=== PATIENT | female | born 1960 | race Caucasian/White ===

== ENCOUNTER → 2016-10-17 | Outpatient (CLI) | payer BC ==
[~2016-10-17] MED LIST: AMPI500C9 PO; INSU100I23 SQ; SITA100T3 PO
== END | disposition home or self-care (01) ==
LOC: C.LAB1850 13:50
PROVIDERS: ATTEND Internal Medicine Endocrinology, Diabetes & Metabolism
DX: E83.52 Hypercalcemia (principal)

== ENCOUNTER → 2017-05-20 | Outpatient (CLI) | payer BC ==
[2017-05-20 17:21] LABS: PROTHROMBIN TIME (PATIENT) 10.6 SECONDS (9.0-12.0)
[2017-05-20 17:32] LABS: POTASSIUM 4.2 mmol/L (3.5-5.1)
== END | disposition home or self-care (01) ==
LOC: C.CPL 16:27
DX: Z01.818 Encounter for other preprocedural examination (principal)

== ENCOUNTER 2017-05-29 05:07 | Day surgery (SDC) | payer BC ==
[2017-05-28 12:04] VITALS: BMI 32.0
[~2017-05-29] VITALS: Ht 167.6 cm; Wt 90.9 kg
[~2017-05-29 05:07] MED LIST changes: -AMPI500C9 PO
[2017-05-29] MEDS ORDERED: AMPI500C9 PO (05:42)
[2017-05-29] MEDS ORDERED: CEFAZOLIN 2000 MG/60 ML D5W IV SCH (06:00)
[2017-05-29 06:10] VITALS: BP 164/76; PULSE 69; TEMP 36.7; O2SAT 96; Ht 167.6 cm; Wt 90.9 kg
--- NOTE | 2017-05-29 06:27 | History & Physical Bridge Note ---
H&P Re-Evaluation Bridge Note: I have examined the patient, reviewed the History & Physical and in the interval since the performance of the History & Physical I have noted the following changes of clinical significance: No changes noted
[2017-05-29 06:46] LABS: BUN/CREATININE RATIO 16.9 (10-20); CALCIUM 10.7 mg/dl (8.5-10.1); CREATININE 1.1 mg/dl (0.60-1.20); POTASSIUM 3.8 mmol/L (3.5-5.1)
--- NOTE | 2017-05-29 06:46 | Discharge Instructions ---
Discharge Instructions Date of Service May 29, 2017. Admission Reason for Admission: Hyperparathyroidism Discharge Discharge Diagnosis / Problem: SAME Discharge Goals Goal(s): Therapeutic intervention Activity Recommendations Activity Limitations: as noted below LIGHT ACTIVITY FOR 2 WEEKS; NO DRIVING WHILE ON NORCO . Current Hospital Diet Patient's current hospital diet: Discharge Diet Recommended Diet: Regular Diet Pending Studies Studies pending at discharge: no Medical Emergencies . Who to Call and When: Medical Emergencies: If at any time you feel your situation is an emergency, please call 911 immediately. . Non-Emergent Contact Non-Emergency issues call your: Surgeon . . "Provider Documentation" section prepared by Leobardo Hughes. . VTE Core Measure Inpt VTE Proph given/why not?: SCD's
[2017-05-29] MEDS ORDERED: ROCURONIUM BROMIDE 10 MG/ML 5 ML VIAL IV ONE (06:59)
[2017-05-29] MEDS ORDERED: PROPOFOL IV EMULSION 10 MG/ML 20 ML VIAL IV ONE (06:59)
[2017-05-29] MEDS ORDERED: SUCCINYLCHOLINE CHLORIDE 20 MG/ML 10 ML VIAL IV ONE (06:59)
[2017-05-29] MEDS ORDERED: LIDOCAINE HCL 2% 2 ML VIAL (20MG/ML) ONE (06:59)
[2017-05-29] MEDS ORDERED: MIDAZOLAM HCL 1 MG/ML 2ML VIAL ONE (07:00)
[2017-05-29] MEDS ORDERED: FENTANYL CITRATE INJ 50 MCG/1 ML 2 ML VIAL ONE ×2 (07:00→08:06)
[2017-05-29] MEDS ORDERED: LIDOCAINE/EPINEPHRINE 1% 20 ML VIAL ONE (07:00)
[2017-05-29] MEDS ORDERED: THROMBIN 5000 UNITS KIT ONE (07:01)
[2017-05-29] MEDS ORDERED: BACITRACIN OINT 15 GM TUBE ONE (07:01)
[2017-05-29] MEDS ORDERED: ONDANSETRON INJ 2 MG/ML 2 ML VIAL ONE (07:44)
[2017-05-29] MEDS ORDERED: DEXAMETHASONE SOD INJ 4 MG/ML VIAL ONE (07:44)
[2017-05-29] MEDS ORDERED: FENTANYL CITRATE INJ 50 MCG/1 ML 2 ML VIAL IV PRN (08:15)
[2017-05-29] MEDS ORDERED: ONDANSETRON INJ 2 MG/ML 2 ML VIAL IV PRN ×2 (08:15→09:15)
[2017-05-29] MEDS ORDERED: ATROPINE SULFATE 0.1 MG/ML 5ML SYR IV PRN (08:15)
[2017-05-29] MEDS ORDERED: EpHEDrine SULFATE INJ 50 MG/ML AMP IV PRN (08:15)
--- NOTE | 2017-05-29 09:09 | [facility] Operative Report ---
Operative Report Operative Date May 29, 2017. Pre-Operative Diagnosis Hyperparathyroidism Post-Operative Diagnosis same Procedure(s) Performed Parathyroidectomy Surgeon Dr. Hughes Bisque Ware Dipper Surgeon(s) Shahrzad Pizarro PA-C Estimated Blood Loss 5 ml Findings 1. RIGHT SUPERIOR PARATHYROID ADENOMA 2. PREOP PTH 65.1 DECREASED TO 12.7 TEN MINUTES AFTER REMOVAL OF ADENOMA Specimens frozen 1. Right Superior Parathyroid Canidate-Evaluate for Adenoma- out of patient at 0819- out of room 0822 by Joseph Lassiter OR Cindy stock 1. rapid parathyroid- drawn at 0832, left room 0832 by Rosaura Dunne OR Cindy Pepe attest to the content of the Intraoperative Record and any orders documented therein. Any exceptions are noted below.
[2017-05-29] MEDS ORDERED: HYDROCODONE/ACETAMOPHEN 5/325MG TAB PO PRN (09:15)
--- NOTE | 2017-05-29 10:19 | Anesthesiology Progress Note ---
Anesthesia Post Op Note Date & Time May 29, 2017 at 10:19 Vital Signs Pain Intensity: 0 Vital Signs Past 12 Hours Date Time Temp Pulse Resp B/P (MAP) Pulse Ox O2 Delivery O2 Flow Rate FiO2 05/29/17 10:10 36.6 77 16 162/84 94 Room Air 05/29/17 10:00 36.6 80 16 158/86 94 Room Air 05/29/17 09:50 81 16 153/82 93 Room Air 05/29/17 09:40 84 16 147/89 97 Oxymask 10 05/29/17 09:30 81 16 137/82 98 Oxymask 10 05/29/17 09:20 36.9 81 16 165/80 99 Oxymask 10 05/29/17 06:10 36.7 69 18 164/76 (105) 96 Room Air Notes Mental Status: alert / awake / arousable, participated in evaluation Pt Amnestic to Procedure: Yes Nausea / Vomiting: adequately controlled Pain: adequately controlled Airway Patency, RR, SpO2: stable & adequate BP & HR: stable & adequate Hydration State: stable & adequate Anesthetic Complications: no major complications apparent
[2017-05-29 10:40] VITALS: BP 169/77; PULSE 78; TEMP 37; O2SAT 94
[2017-05-29 11:10] VITALS: BP 154/64; PULSE 81; O2SAT 94
[2017-05-29 11:40] VITALS: BP 147/63; PULSE 81; TEMP 36.9; O2SAT 96
--- NOTE | 2017-05-29 15:06 | OPERATIVE REPORT ---
DATE OF OPERATION: 05/29/2017 PREOPERATIVE DIAGNOSIS: Primary hyperparathyroidism. POSTOPERATIVE DIAGNOSIS: Primary hyperparathyroidism. PROCEDURE: Right superior parathyroidectomy. SURGEON: Leobardo Hughes MD WILL CALL CLERK: Shahrzad Pizarro PA-C ESTIMATED BLOOD LOSS: 5 mL. FINDINGS: 1. Right superior parathyroid adenoma which is confirmed on frozen section diagnosis. 2. Preoperative PTH of 65.1 which decreased to 12.7, 10 minutes after removal of offending adenoma. SPECIMENS: Right superior parathyroid candidate for frozen section diagnosis. DRAINS: None. COMPLICATIONS: None. INDICATIONS: The patient is a 56-year-old female with a long history of hypercalcemia and kidney stones, who just recently was diagnosed with primary hyperparathyroidism. A nuclear medicine study suggested a right-sided parathyroid adenoma. Interestingly, her PTH was never out of the normal range, but it was in the higher levels of normal. Her calciums have ranged from approximately 10.5 to approximately 11.3 on the most recent labs. However, she has had hypercalcemia perhaps since 2007. She presents for the above-mentioned procedure on an outpatient elective basis. DETAILS OF PROCEDURE: After informed consent had been obtained from patient, patient was wheeled to the operating room and placed on the operating room table in supine position. Monitors were placed. After induction of general endotracheal anesthesia with a nerve integrity monitor endotracheal tube, patient's head and neck were gently extended and a marking pen was used to outline the planned 4 cm incision in a natural skin crease 2 fingerbreadths above the level of the clavicles. A total of 3 mL of 1% lidocaine with 1:100,000 epinephrine was used to inject the skin and subcutaneous tissues overlying the planned incision site. The skin of the neck and chest were then prepped and draped in usual sterile fashion. A #15 scalpel was then used to make an incision through the skin, subcutaneous tissue, and platysma. Subplatysmal flaps were raised superiorly and inferiorly. The strap muscles were then identified and the median raphe was divided using Bovie electrocautery. The strap muscles were retracted laterally and the right thyroid lobe was identified. The middle thyroid vein was divided adjacent to the thyroid capsule in order to provide medial traction of the right thyroid lobe to gain access to the right tracheoesophageal groove region. There was what appeared to be a normal right inferior parathyroid that was left undisturbed. There was a right superior parathyroid candidate, which was located in the right tracheoesophageal groove and densely adherent to the recurrent laryngeal nerve which was identified and preserved. The parathyroid candidate was removed using blunt and sharp dissection. The specimen was sent off for frozen section diagnosis, which revealed a hyperparacellular parathyroid gland consistent with parathyroid adenoma. The wound was copiously irrigated and suctioned. Hemostasis was confirmed with a Valsalva maneuver. Small pieces of Surgicel followed by topical spray thrombin were placed into the right tracheoesophageal groove for added hemostatic effect. The strap muscles were then reapproximated using a simple running interlocked 3-0 Vicryl suture. The platysma was then closed with several deep 4-0 Monocryl sutures. The skin was then closed with a simple running subcuticular 5-0 Monocryl suture. The incision was cleaned and dried. PTH level was drawn by Anesthesia 10 minutes after removal of the adenoma and this dropped from 65.1 preoperatively to 12.7. This indicates surgical cure. Dermabond was applied to the incision. This marked the end of the case. The patient tolerated the procedure well and there were no apparent complications. The patient was extubated and transferred to recovery room in stable condition. I attest to the content of the Intraoperative Record and any orders documented therein. Any exception s are noted below.
--- NOTE | 2017-05-29 15:47 | Progress Note ---
Progress Note Date of Service May 29, 2017. Progress Note Called after patient transferred to [facility] to evaluate swelling and bruising on L forearm. There were 2 small and mildly painful hematomas on the L wrist which did not impede blood flow or neurologic funtion of the hand. These correspond to the location where intraoperative blood draws were preformed (dorsal hand, forearm, and anticubital fossa inaccessible). Ice pack already in place by RN in recovery. I reassured the patient that these hematomas were not concerning and should kael in 24-48 hours, although bruising would likely remain for several days to a week. She will call or be evaluated with questions, concerns , or lack of improvement.
== END 2017-05-29 12:25 | disposition home or self-care (01) ==
LOC: C.ACU 05:07
DX: E21.0 Primary hyperparathyroidism (principal); L76.22 Postprocedural hemorrhage of skin and subcutaneous tissue following other procedure; Z87.891 Personal history of nicotine dependence

== ENCOUNTER → 2017-06-13 | Outpatient (CLI) | payer BC ==
[~2017-06-13] MED LIST changes: +AMPI500C9 PO
[2017-06-13 16:16] LABS: CALCIUM 9.8 mg/dl (8.5-10.1)
== END | disposition home or self-care (01) ==
LOC: C.LAB1850 15:01
PROVIDERS: ATTEND Internal Medicine Endocrinology, Diabetes & Metabolism
DX: E83.52 Hypercalcemia (principal); N20.0 Calculus of kidney; E21.3 Hyperparathyroidism, unspecified